=== PATIENT | male | born 1970 | race Caucasian/White ===

== ENCOUNTER 2024-07-22 16:24 | Emergency (ER) | payer OTHER ==
--- OUTSIDE RECORDS SUMMARY | 2024-07-22 16:28 | XMS REPORT | Continuity of Care Document ---
Author Name Unknown Address [address] [facility] [address] [place] [address] [facility] thconnect Address [address] [facility] [address] [place] [address] Care Team Providers Care Pediatric Occupational Therapist Name Role Phone Nam DO Joseph Quesada Primary Care Physician [phone] Doctor Unassigned, Park Layne Attending Clinician U alanaailGhislaine Cadena Attending Clinician [phone] GHISLAINE CAIN Attending Clinician Unavailable BEVERLY JARAMILLO Attending Clinician Unavailable Beverly Lindsey Attending Clinician [phone] Cinthia-Mbonealo_A_AH Attending Clinician Unavailable GHISLAINE CAIN Admitting Clinician Unavailable BEVERLY JARAMILLO Admitting Clinician Unavailable Cinthia-Mbonealo_A_AH Admitting Clinician Unavailable Payers Payer Name Policy Type Policy Number Effective Date Expirati on Date Source [facility] (MEDICARE REPLACEMENT/ADVANT AGE - HMO) [id number] 2019 00:00:00 Problems Condition Name Condition Details Condition Category Status Onset Date Resolution Date Last Treatment Date Treating Clinician Comments Source No known active problems No known active problems Disease [facility] Allergies, Adverse Reactions, Alerts Allergy Name Allergy Type Status Severity Reaction(s) Onset Date Inactive Date Treating Clinician Comments Source NO KNOWN ALLERGIE S Drug Class Active [facility] Social History Social Habit Start Date Stop Date Quantity Comments Source History of tobacco use Cigarette Smoker [facility] Exposure to SARS-CoV-2 (event) 2022-01-31 00:00:00 2022-02-10 15:24:00 Not sure [facility] Alcohol intake 2022-02-10 00:00:00 2022-02-10 00:00:00 .12 /d [facility] Cigarettes smoked current (pack per day) - Reported 2012-08-30 00:00:00 2012-08-30 00:00:00 [facility] Cigarette pack-years 2012-08-30 00:00:00 2012-08-30 00:00:00 [facility] Tobacco use and exposure 2012-08-30 00:00:00 2012-08-30 00:00:00 Former user [facility] Sex Assigned At 1970 00:00:00 1970 00:00:00 [facility] Smoking Status Start Date Stop Date Source Current every day smoker 2012-08-30 00:00:00 [facility] Medications Ordered Medication Name Filled Medication Name Start Date Stop Date Current Medication? Ordering Clinician Indication Dosage Frequency Signature (SIG) Comments Components Source iopamidol (ISOVUE 370-500 mL) injection 50 mL 02-11 00:15: 00 02-11 00:15 :00 No [id number] 50mL 50 mL, Intravenou s, ONCE, 1 dose, On Tue02/10/22 at 1915, Routine [facility] ondansetron (ZOFRAN-ODT ) disintegrat ing tablet 4 mg 02-10 23:30: 00 02-10 22:55 :00 No 4mg 4 mg, Oral, ONCE, 1 dose, On Tue02/10/22 at 1830, Routine [facility] methocarbam oL 500 mg tablet 02-09 00:00: 00 Yes [id number] 500mg Take 1 tablet by mouth 4 (four) times daily as needed (muscle pain). [facility] predniSONE 20 mg tablet 02-09 00:00: 00 02-14 04:59 :00 No [id number] 20mg Take 1 tablet by mouth 2 (two) times daily for 4 days. [facility] Vital Signs Vital Name Observation Time Observation Value Comments S ource Systolic blood pressure 2022-02-11 00:38:42 171 mm[Hg] [facility] Diastolic blood pressure 2022-02-11 00:38:42 110 mm[Hg] [facility] Heart rate 2022-02-11 00:38:42 74 /min [facility] Respiratory rate 2022-02-11 00:38:42 14 /min [facility] Oxygen saturation in Arterial blood by Pulse oximetry 2022-02-11 00:38:42 98 /min [facility] Body temperature 2022-02-10 20:35:00 36.11 [facility] Body height 2022-02-10 20:35:00 185.4 cm [facility] Body weight 2022-02-10 20:35:00 119.75 kg [facility] BMI 2022-02-10 20:35:00 34.83 kg/m2 [facility] Systolic blood pressure 2022-02-09 17:25:00 155 mm[Hg] [facility] Diastolic blood pressure 2022-02-09 17:25:00 100 mm[Hg] [facility] Heart rate 2022-02-09 17:25:00 91 /min [facility] Body temperature 2022-02-09 17:25:00 36.72 [facility]ist [facility] Respiratory rate 2022-02-09 17:25:00 17 /min [facility] Body height 2022-02-09 17:25:00 185.4 cm [facility] Body weight 2022-02-09 17:25:00 120.203 kg [facility] BMI 2022-02-09 17:25:00 34.96 kg/m2 [facility] Oxygen saturation in Arterial blood by Pulse oximetry 2022-02-09 17:25:00 98 /min [facility] Procedures Procedure Date / Time Performed Performing Clinician Source INSURANCE CORRESPONDENCE 2022-02-25 05:01:00 Doc tor Unassigned, Park Layne [facility] COMP. METABOLIC PANEL (83074) 2022-02-11 00:32:00 Ghislaine Cain [facility] CT ABDOMEN PELVIS W CONTRAST 2022-02-10 23:13:39 Ghislaine Cain [facility] LIPASE 2022-02-10 22:52:00 Ghislaine Cain [facility] CBC WITH DIFF 2022-02-10 22:52:00 Ghislaine Cain [facility] URINALYSIS 2022-02-10 22:52:00 Ghislaine Cain [facility] CONSENT/REFUSAL FOR DIAGNOSIS AND TREATMENT 2022-02-10 20:24:33 Doctor Unassigned, Park Layne [facility] XR CERVICAL SPINE 3 VW 2022-02-09 18:20:00 Annel Jaramillo [facility] Encounters Start Date/Time End Date/Time Encounter Type Admission Type Attending [facility] Care Department Encounter ID Source 2022-02-25 00:00:00 2022-02-25 00:00:00 Orders Only Doctor Unassigned, Park Layne [facility] [id number] [facility] 2022-02-10 15:37:00 2022-02-10 21:03:00 Emergency Ghislaine Cain [facility] [id number] [facility] 2022-02-10 15:37:00 2022-02-10 21:03:00 Emergency X GHISLAINE CAIN [facility] ERT [id number] [facility] 2022-02-09 12:27:00 2022-02-09 15:34:00 Emergency X BEVERLY JARAMILLO [facility] ERT [id number] [facility] 2022-02-09 12:27:00 2022-02-09 15:34:00 Emergency Beverly Jaramillo [facility] [id number] [facility] 2019-10-31 07:22:00 2019-10-31 07:22:00 Outpatient Cinthia-Mbayo _A_AH VFP VFP [id number] 2019-10-31 07:22:00 2019-10-31 07:22:00 Outpatient Cinthia-Mbayo _A_AH VFP VFP [id number] 2019-10-31 07:22:00 2019-10-31 07:22:00 Outpatient Cinthia-Mbayo _A_AH VFP VFP [id number] [facility] Results Test Description Test Time Test Comments Results Result Co mments Source [facility]45:44* Test Item Value Reference Range Interpretation Comme nts LIPASE (test code = 4399729046) 201 U/L 0-220 Lab Interpretation (test cod e = 41196-3) Normal [facility] WITH [id number] 23:34:04* Test Item Value Reference Range Interpretation Comme nts WBC (test code = 6690-2) See_Comment [Automated messa ge] The system which generated this result transmitted reference range: 4.20 - 10.70 10*3/?L. The reference range was not used to interpret this result as normal/abnormal. RBC (test code = 789-8) See_Comment [Automated messa ge] The system which generated this result transmitted reference range: 4.26 - 5.52 10*6/?L. The reference range was not used to interpret this result as normal/abnormal. HGB (test code = 718-7) 14.4 g/dL 12.2-16.4 HCT (test code = 4544-3) 43.8 % 38.4-49.3 MCV (test code = 787-2) 84.6 fL 81.7-95.6 MCH (test code = 785-6) 27.8 pg 26.1-32.7 MCHC (test code = 786-4) 32.9 g/dL 31.2-35.0 RDW-SD (test code = 21557-2) 43.8 fL 38.5-51.6 RDW-CV (test code = 788-0) 14.0 % 12.1-15.4 PLT (test code = 777-3) See_Comment [Automated messa ge] The system which generated this result transmitted reference range: 150 - 328 10*3/?L. The reference range was not used to interpret this result as normal/abnormal. MPV (test code = 28616-6) 12.5 fL 9.8-13.0 NRBC/100 WBC (test code = 8638819854) See_Comment [Automated [employer] ssage] The system which generated this result transmitted reference range: 0.0 - 10.0 /100 WBCs. The reference range was not used to interpret this result as normal/abnormal. NRBC x10^3 (test code = 7044562757) <0.01 See_Comment [Automated [employer] ge] The system which generated this result transmitted reference range: 10*3/?L. The reference range was not used to interpret this result as normal/abnormal. GRAN MAT (NEUT) % (test code = 770-8) 82.6 % IMM GRAN % (test code = 6647035672) 0.60 % LYMPH % (test code = 736-9) 13.4 % MONO % (test code = 5905-5) 2.9 % EOS % (test code = 713-8) 0.2 % BASO % (test code = 706-2) 0.3 % GRAN MAT x10^3(ANC) (test code = 0240515484) 8.36 10*3/uL 1.99-6.95 H IMM GRAN x10^3 (test code = 0628183080) 0.06 10*3/uL 0.00-0.06 LYMPH x10^3 (test code = 731-0) 1.35 10*3/uL 1.09-3.23 MONO x10^3 (test code = 742-7) 0.29 10*3/uL 0.36-1.02 L EOS x10^3 (test code = 711-2) <0.03 0.06-0.53 L BASO x10^3 (test code = 704-7) 0.03 10*3/uL 0.01-0.09 Lab Interpretation (test code = 82805-3) Abnormal [facility]
[2024-07-22] MEDS ORDERED: HYDROCODONE/APAP 10/325 TAB ONE (16:44)
--- NOTE | 2024-07-22 18:55 | RAD REPORT ---
EXAM: XR Knee Left 3 View HISTORY: BR MAIN PAIN Bed: COMPARISON: None TECHNIQUE: 3 views of the left knee were obtained. FINDINGS: Large knee effusion is seen. There is no evidence of acute fracture or dislocation. Mild t ricompartmental osteoarthritic changes. Enthesopathy at the quadriceps and patellar tendon attachments. Osseous spurring along the medial tibial plateau, could relate to sequelae of remote MCL injury. No soft tissue swelling or other soft tissue abnormality is present. IMPRESSION: No evidence of acute osseous abnormality. Large suprapatellar joint effusion. Other radio news anchor swathi findings as above.
--- NOTE | 2024-07-22 19:00 | EDPHYS ---
Physician Documentation [facility] Name: Alonso Craig Age: 54 yrs Sex: Male : 1970 Arrival Date: 07/22/2024 Time: 16:24 Bed DX3 Private MD: ED Physician Tai Mckee HPI: 07/22 16:56 This 54 yrs old Male presents to ER via Wheelchair with complaints of Knee Pain. kb 16:56 Pt is a 54 year old male who presents for left knee pain that started 3 days ago. kb states he has intermittent pain and swelling to this knee, but this time it is worse than normal. Reports he did fall a week or two ago, but didn't think he injured anything. Historical: - Allergies: 16:46 No Known Allergies; cm10 - PMHx: 16:46 Hypertensive disorder; cm10 - Immunization history:: Adult Immunizations up to date. - Infectious Disease History:: Denies. - Social history:: Smoking status: Patient reports the use of cigarette tobacco products, smokes one pack cigarettes per day. Patient uses alcohol, on a daily basis. ROS: 16:56 Constitutional: As per HPI kb Exam: 16:56 Constitutional: This is a well developed, well nourished patient who is awake, alert, kb and in no acute distress. Head/Face: Normocephalic, atraumatic. ENT: Moist Mucous membranes Cardiovascular: Regular rate Respiratory: Respirations even and unlabored. No increased work of breathing. Talking in full sentences Skin: Warm, dry with normal turgor. Normal color. Neuro: Awake and alert, GCS 15, oriented to person, place, time, and situation. 16:56 Musculoskeletal/extremity: Extremities: grossly normal except: noted in the left knee: pain, swelling, ROM: limited active range of motion due to pain, Circulation is intact in all extremities. Sensation intact. Weight bearing: can bear weight with assistance only, uses crutches, Vital Signs: 16:45 BP 157 / 100; Pulse 107; Resp 18; Temp 98.1(O); Pulse Ox 98% on R/A; Weight 129.27 kg; cm10 Height 6 ft. 0 in. ; Pain 10/10; 19:58 BP 148 / 95; Pulse 97; Resp 20; Temp 98.2(O); Pulse Ox 97% on R/A; tl4 16:45 Body Mass Index 38.65 (129.27 kg, 182.88 cm) cm10 16:45 Pain Scale: Adult cm10 MDM: 16:33 Medical Screening Exam initiated 16:56 Data reviewed: vital signs, nurses notes. kb 17:46 Transition of care: After a detail discussion of the patient's case, care is kb transferred to Tai LOPEZ. 07/22 16:43 Order name: Knee Left 3 View XRAY; Complete Time: 18:57 cm10 07/22 18:58 Interpretation: Report reviewed. cp 07/22 18:58 Order name: Knee Immobilizer; Complete Time: 19:58 cp Administered Medications: 16:51 Drug: [place] PO 10 mg-325 mg 1 tabs PO once Route: PO; cm10 18:44 Follow up: Response: No adverse reaction cm10 19:46 Drug: Ketorolac IM 30 mg IM once Route: IM; Site: left deltoid; tl4 20:02 Follow up: Response: No adverse reaction tl4 Disposition Summary: 07/22/24 18:59 Discharge Ordered Notes: Location: Home cp Problem: new cp Symptoms: have improved cp Condition: Stable cp Diagnosis - Effusion, left knee cp Followup: cp - With: Tray Pina MD - When: 5 - 6 days - Reason: Recheck today's complaints Discharge Instructions: - Discharge Summary Sheet cp - Knee Effusion cp Forms: - Medication Reconciliation Form cp - Antibiotic Education cp - Prescription Opioid Use cp - Patient Portal Instructions cp - Leadership Thank You Letter cp Prescriptions: - Anaprox DS 550 mg Oral Tablet - take 1 tablet ORAL route every 12 hours As needed; 20 tablet; Refills: 0, cp Product Selection Permitted Signatures: Dispatcher [employer] EDDC Sivan Arnold, MARIE-Franci SENIOR CLINICAL RESEARCH SCIENTIST-Tai Cintron PA PA cp Cynthia Sow, RN RN cm10 Gagandeep Crandall RN RN tl4 Corrections: (The following items were deleted from the chart) 17:42 16:56 Pt is a 54 year old male who presents for left knee pain that started 3 days ago. kb states he has intermittent pain and swelling to this knee, but this time it is worse than normal. Denies injury/trauma. . kb 19:54 18:58 Crutches ordered. cp tl4
--- NOTE | 2024-07-22 19:00 | ER ---
Nurse's Notes [facility] Name: Alonso Craig Age: 54 yrs Sex: Male : 1970 Arrival Date: 07/22/2024 Time: 16:24 Bed DX3 Private MD: Diagnosis: Effusion, left knee Presentation: 07/22 16:45 Chief complaint: Patient states: Left knee pain onset 3 days ago. Pt reports having a cm10 fall 3 weeks ago. Pt has noted swelling to left knee. Coronavirus screen: Client denies travel out of the [place] in the last 14 days. Ebola Screen: Patient denies travel to an Ebola-affected area in the 21 days before illness onset. No symptoms or risks identified at this time. Initial Sepsis Screen: Does the patient meet any 2 criteria? HR > 90 bpm. Does the patient have a suspected source of infection? No. Patient's initial sepsis screen is negative. Risk Assessment: Do you want to hurt yourself or someone else? Patient reports no desire to harm self or others. Onset of symptoms was July 22, 2024. 16:45 Method Of Arrival: Wheelchair cm10 16:45 Acuity: JOANNE 4 cm10 Triage Assessment: 16:46 General: Appears in no apparent distress. uncomfortable, Behavior is calm, cooperative. cm10 Pain: Complains of pain in left knee Pain radiates to left hip Pain currently is 10 out of 10 on a pain scale. Neuro: No deficits noted. Level of Consciousness is awake, alert, obeys commands, Oriented to person, place, time, situation, Appropriate for age. Respiratory: No deficits noted. Airway is patent Respiratory effort is even, unlabored, Respiratory pattern is regular, symmetrical. Historical: - Allergies: 16:46 No Known Allergies; cm10 - PMHx: 16:46 Hypertensive disorder; cm10 - Immunization history:: Adult Immunizations up to date. - Infectious Disease History:: Denies. - Social history:: Smoking status: Patient reports the use of cigarette tobacco products, smokes one pack cigarettes per day. Patient uses alcohol, on a daily basis. Screenin:43 [facility] ED Fall Risk Assessment (Adult) History of falling in the last 3 months, cm10 including since admission Yes- single mechanical fall (1 pt) Confusion or Disorientation No (0 pts) Intoxicated or Sedated No (0 pts) Impaired Gait Yes (1 pt) Mobility Assist Device Used Yes (1 pt) Altered Elimination No (0 pt) Score/Fall Risk Level 3 or more points = High Risk Oriented to surroundings, Maintained a safe environment, Hourly rounding (assess needs \T\ fall precautionary measures) done. Abuse screen: Denies threats or abuse. Denies injuries from another. Nutritional screening: No deficits noted. Tuberculosis screening: No symptoms or risk factors identified. Assessment: 19:54 General: Appears in no apparent distress. Behavior is calm, cooperative. Pain: tl4 Complains of pain in left knee. Neuro: Level of Consciousness is awake, alert, obeys commands, Oriented to person, place, time, situation. Cardiovascular: Capillary refill < 3 seconds Patient's skin is warm and dry. Respiratory: Airway is patent Respiratory effort is even, unlabored, Respiratory pattern is regular, symmetrical. GI: No signs and/or symptoms were reported involving the gastrointestinal system. : No signs and/or symptoms were reported regarding the genitourinary system. EENT: No signs and/or symptoms were reported regarding the EENT system. Derm: No signs and/or symptoms reported regarding the dermatologic system. Musculoskeletal: Swelling present in left knee Reports pain in left knee. Vital Signs: 16:45 BP 157 / 100; Pulse 107; Resp 18; Temp 98.1(O); Pulse Ox 98% on R/A; Weight 129.27 kg; cm10 Height 6 ft. 0 in. ; Pain 10/10; 19:58 BP 148 / 95; Pulse 97; Resp 20; Temp 98.2(O); Pulse Ox 97% on R/A; tl4 16:45 Body Mass Index 38.65 (129.27 kg, 182.88 cm) cm10 16:45 Pain Scale: Adult cm10 ED Course: 16:30 Patient arrived in ED. mg5 16:33 Sivan Arnold FNP-C is PHCP. kb 16:33 Tai Mckee MD is Attending Physician. kb 16:46 Triage completed. cm10 16:47 Arm band placed on left wrist. Patient placed in waiting room. cm10 17:48 PHCP role handed off by Sivan Arnold FNP-C cp 17:48 Tai Palmer PA is PHCP. cp 18:01 Knee Left 3 View XRAY In Process Unspecified. EDMS 18:43 Patient has correct armband on for positive identification. Provided Education on: ER cm10 process and procedures.. Cardiac monitoring not applicable on this patient. 18:59 Tray Pina MD is Referral Physician. cp 19:57 No provider procedures requiring assistance completed. Patient did not have IV access tl4 during this emergency room visit. 19:58 Knee immobilizer applied on left knee. tl4 Administered Medications: 16:51 Drug: [place] PO 10 mg-325 mg 1 tabs PO once Route: PO; cm10 18:44 Follow up: Response: No adverse reaction cm10 19:46 Drug: Ketorolac IM 30 mg IM once Route: IM; Site: left deltoid; tl4 20:02 Follow up: Response: No adverse reaction tl4 Medication: 18:43 VIS not applicable for this client. cm10 Outcome: 18:59 Discharge ordered by . cp 20:02 Patient left the ED. tl4 Signatures: Dispatcher [employer] EDMS Sivan Arnold, EVENTS DIRECTOR-C EVENTS DIRECTOR-CkTai Negron PA PA cp Martinez, Clarissa, RN RN cm10 Amelie Churchill mg5 Gagandeep Crandall RN RN tl4
[2024-07-22] MEDS ORDERED: KETOROLAC 30 MG/ML INJ ONE (19:38)
[2024-07-22 20:09] VITALS: BP 148/95; TEMP 98.2; O2SAT 97
== END 2024-07-22 20:02 | disposition home or self-care (01) ==
LOC: ER 16:24
DX: M25.462 Effusion, left knee (principal); F17.210 Nicotine dependence, cigarettes, uncomplicated
CPT/HCPCS: 96372; 99284